=== PATIENT | female | born 1975 | race Asian ===

== ENCOUNTER 2020-03-10 08:45 | Observation (INO) | payer BC ==
[~2020-03-10] VITALS: Ht 157.5 cm; Wt 63.5 kg
[2020-03-10] MEDS ORDERED: SYNTHROID75 MCG ORAL (08:57)
--- NOTE | 2020-03-10 09:11 | Emergency Room Report ---
History of Present Illness General Chief Complaint: Abnormal Labs Source: Patient Present Illness HPI Disclaimer: Please note that this report is being documented using DRAGON technology. This can lead to erroneous entry secondary to incorrect interpretation by the dictating instrument. HPI: 44-year-old female history of chronic anemia presents for evaluation of fatigue concerned of worsening anemia. Patient has chronic anemia and will receive occasional transfusions. She follows with hematology and gets regular infusions of iron at [facility]. Last transfused at [facility] emergency department 3 weeks ago. She states she has been experiencing symptoms of a UTI causing increased bleeding. Prior history of fibroids but status post ablation. Has not been using antibiotics opting for holistic approach to treatment of UTI. Reports fatigue, pale appearance, lightheadedness. She states this is consistent with prior episodes of anemia requiring transfusion. Denies fall or trauma. Denies chest pain, palpitations, shortness of breath, abdominal pain, nausea, vomiting, hematochezia, melena. PMH: Anemia, PSH: Fibroid embolization Allergies: Reviewed Social Hx: Reviewed Allergies: Coded Allergies: No Known Allergies (Unverified , 03/10/20) COVID-19 Screening Contact w/high risk pt: No Experienced COVID-19 symptoms?: No COVID-19 Testing performed TRUST ADMINISTRATOR: No Patient History Now: No Review of Systems All Other Systems: negative except mentioned in HPI Physical Exam Vital Signs Date Time Temp Pulse Resp B/P (MAP) Pulse Ox O2 Delivery O2 Flow Rate FiO2 03/10/20 08:53 98.2 111 18 102/54 (70) 98 Room Air General: Awake and alert, no acute distress, pale appearing HEENT: NC/AT. EOMI. Cardiovascular: Tachycardic. S1 and S2 normal. No murmur appreciated Resp: Normal work of breathing. No cough, wheezing or crackles appreciated Abdomen: Abdomen is soft, nondistended. Nontender Skin: Pale appearing. Intact. No abrasions, laceration or rash over the exposed skin MSK: Normal tone and bulk. Moving all extremities. No obvious deformity. Neuro: Awake and alert. Mentating appropriately. Procedures Critical Care Time Critical Care Time Total critical care time: Approximately 31 minutes Due to a high probability of clinically significant, life threatening deterioration, the patient required the highest level of preparedness to intervene emergently and I personally spent this critical care time directly and personally managing the patient. This critical care time included obtaining a history, examining the patient, pulse oximetry, ordering and reviewing studies, ordering treatments, evaluating response to treatment and updating management plan as needed, frequent reassessment and discussion with other providers as well as arranging for ultimate disposition. This critical to care time was performed to assess and manage the high probability of life-threatening deterioration that could result in multiorgan failure. This critical care time is separate from the separately billable procedures and treating other patients. Medical Decision Making Diagnostic Impression: Primary Impression: Anemia ER Course 44-year-old female history of chronic anemia presents for fatigue. Differential includes is not limited to symptomatic anemia, dehydration, electrolyte abnormality, ACS, among others. EKG is nonischemic. Patient started IV fluids. Hemoglobin returned critically low and will start transfusion. No clear UTI identified. Other labs within normal limits. Patient will require admission. Accepted by Dr. Washington who is panel physician today. Laboratory Tests Test 03/10/20 09:06 White Blood Count 5.5 K/UL (4.8-10.8) Red Blood Count 1.19 M/UL (4.20-5.40) L Hemoglobin 3.6 G/DL (12.0-16.0) *L Hematocrit 12.3 % (37.0-47.0) L Mean Corpuscular Volume 103 FL (80-99) H Mean Corpuscular Hemoglobin 30.2 PG (27.0-31.0) Mean Corpuscular Hemoglobin Concent 29.2 G/DL (32.0-36.0) L Red Cell Distribution Width 23.6 % (11.6-14.8) H Platelet Count 354 K/UL (150-450) Mean Platelet Volume 6.8 FL (6.5-10.1) Neutrophils (%) (Auto) % (45.0-75.0) Lymphocytes (%) (Auto) % (20.0-45.0) Monocytes (%) (Auto) % (1.0-10.0) Eosinophils (%) (Auto) % (0.0-3.0) Basophils (%) (Auto) % (0.0-2.0) Neutrophils % (Manual) Pending Lymphocytes % (Manual) Pending Platelet Estimate Pending Platelet Morphology Pending Prothrombin Time 10.0 SEC (9.30-11.50) Prothrombin Time INR 0.9 (0.9-1.1) Activated Partial Thromboplast Time 21 SEC (23-33) L Urine Color Pale yellow Urine Appearance Clear Urine pH 7 (4.5-8.0) Urine Specific [place] 1.005 (1.005-1.035) Urine Protein 1+ (NEGATIVE) H Urine Glucose (UA) Negative (NEGATIVE) Urine Ketones Negative (NEGATIVE) Urine Blood 5+ (NEGATIVE) H Urine Nitrite Negative (NEGATIVE) Urine Bilirubin Negative (NEGATIVE) Urine Urobilinogen Normal MG/DL (0.0-1.0) Urine Leukocyte Esterase 2+ (NEGATIVE) H Urine RBC 10-15 /HPF (0 - 2) H Urine WBC 2-4 /HPF (0 - 2) Urine Squamous Epithelial Cells Few /LPF (NONE/OCC) Urine Bacteria Occasional /HPF (NONE) Sodium Level 140 MMOL/L (136-145) Potassium Level 4.0 MMOL/L (3.5-5.1) Chloride Level 109 MMOL/L (98-107) H Carbon Dioxide Level 22 MMOL/L (21-32) Anion Gap 9 mmol/L (5-15) Blood Urea Nitrogen 6 mg/dL (7-18) L Creatinine 0.7 MG/DL (0.55-1.30) Estimated Glomerular Filtration Rate > 60 mL/min (>60) Glucose Level 126 MG/DL (74-106) H Calcium Level 7.6 MG/DL (8.5-10.1) L Total Bilirubin 0.2 MG/DL (0.2-1.0) Aspartate Amino Transferase (AST) 19 U/L (15-37) Alanine Aminotransferase (ALT) 16 U/L (12-78) Alkaline Phosphatase 63 U/L (46-116) Troponin I Pending Total Protein 5.2 G/DL (6.4-8.2) L Albumin 2.5 G/DL (3.4-5.0) L Globulin 2.7 g/dL Albumin/Globulin Ratio 0.9 (1.0-2.7) L EKG Diagnostic Results Troponin ordered: Yes When was troponin ordered?: Mar 10, 2020 EKG Time: 09:24 Rate: normal Rhythm: NSR ST Segments: no acute changes Other Impression Sinus rhythm, normal axis, normal intervals, no ST segment changes. Rhythm Strip Diag. Results Rhythm Strip Time: 09:24 EP Interpretation: yes Rate: 100 Rhythm: NSR, no PVC's, no ectopy Last Vital Signs Date Time Temp Pulse Resp B/P (MAP) Pulse Ox O2 Delivery O2 Flow Rate FiO2 03/10/20 08:53 98.2 111 18 102/54 (70) 98 Room Air Disposition: ADMITTED INPATIENT Condition: Serious Hilario Brown MD Mar 10, 2020 09:11
[2020-03-10 09:15] VITALS: BP 102/54
[2020-03-10 09:23] LABS: APPEARANCE,URINE CLEAR; BILIRUBIN, URINE NEGATIVE (NEGATIVE); COLOR,URINE PALE YELLOW; GLUCOSE, URINE (UA) NEGATIVE (NEGATIVE); KETONES,URINE NEGATIVE (NEGATIVE); LEUKOCYTE ESTERASE ,URINE 2+ (NEGATIVE); NITRITE,URINE NEGATIVE (NEGATIVE); PH,URINE 7 (4.5-8.0); PROTEIN,URINE 1+ (NEGATIVE); UROBILINOGEN,URINE NORMAL MG/DL (0.0-1.0)
[2020-03-10 09:25] LABS: HEMATOCRIT 12.3 % (37.0-47.0); HEMOGLOBIN 3.6 G/DL (12.0-16.0); MEAN CORPUSCULAR VOLUME 103 FL (80-99); PLATELET COUNT 354 K/UL (150-450); RED BLOOD COUNT 1.19 M/UL (4.20-5.40); RED CELL DISTRIBUTION WIDTH 23.6 % (11.6-14.8); WHITE BLOOD COUNT 5.5 K/UL (4.8-10.8)
[2020-03-10 09:39] LABS: INR 0.9 (0.9-1.1)
[2020-03-10 09:44] LABS: ANION GAP 9 mmol/L (5-15); BLOOD UREA NITROGEN 6 mg/dL (7-18); CALCIUM 7.6 MG/DL (8.5-10.1); CARBON DIOXIDE 22 MMOL/L (21-32); CHLORIDE 109 MMOL/L (98-107); CREATININE 0.7 MG/DL (0.55-1.30); SODIUM 140 MMOL/L (136-145)
[2020-03-10 09:46] LABS: ALANINE AMINOTRANSFERASE 16 U/L (12-78); ALBUMIN 2.5 G/DL (3.4-5.0); ALBUMIN/GLOBULIN RATIO 0.9 (1.0-2.7); ALKALINE PHOSPHATASE 63 U/L (46-116); ASPARTATE AMINO TRANSFERASE 19 U/L (15-37); BILIRUBIN,TOTAL 0.2 MG/DL (0.2-1.0)
[2020-03-10 10:50] VITALS: BP 97/50
[2020-03-10 16:40] VITALS: BP 122/69
--- NOTE | 2020-03-10 19:38 | History & Physical ---
History and Physical History & Physicial 44-year-old female history of chronic anemia presents for evaluation of fatigue and severe anemia. Patient with prior transfusions. She follows with hematology and gets regular infusions of iron at [facility]. Last transfused at [facility] emergency department 3 weeks ago. +vaginal bleeding. Prior history of fibroids but status post ablation. Has not been using antibiotics opting for holistic approach to treatment of UTI. Reports fatigue, pale appearance, lightheadedness. PMH: Anemia, s/p transfusion PSH: Fibroid embolization Allergies: Reviewed Social Hx: Reviewed Physical WDWN NAD clear breath sounds bilaterally without rhonchi or wheeze [id number] without MRG NABS nontender no HSM no CCE nonfocal Laboratory Tests 03/10/20 09:06: White Blood Count 5.5, Red Blood Count 1.19L, Hemoglobin 3.6*L, Hematocrit 12.3L , Mean Corpuscular Volume 103H, Mean Corpuscular Hemoglobin 30.2, Mean Corpuscular Hemoglobin Concent 29.2L, Red Cell Distribution Width 23.6H, Platelet Count 354, Mean Platelet Volume 6.8, Neutrophils (%) (Auto) , Lymphocytes (%) (Auto) , Monocytes (%) (Auto) , Eosinophils (%) (Auto) , Basophils (%) (Auto) , Differential Total Cells Counted 100, Neutrophils % (Manual) 82H, Lymphocytes % (Manual) 9L, Monocytes % (Manual) 9, Eosinophils % (Manual) 0, Basophils % (Manual) 0, Band Neutrophils 0, Platelet Estimate Adequate, Platelet Morphology Normal, Hypochromasia 2+, Anisocytosis 3+, Macrocytosis 1+, Prothrombin Time 10.0, Prothromb Time International Ratio 0.9, Activated Partial Thromboplast Time 21L, Urine Color Pale yellow, Urine Appearance Clear, Urine pH 7, Urine Specific [employer] [place] 1.005, Urine Protein 1+H, Urine Glucose (UA) Negative, Urine Ketones Negative, Urine Blood 5+H, Urine Nitrite Negative, Urine Bilirubin Negative, Urine Urobilinogen Normal, Urine Leukocyte Esterase 2+H, Urine RBC 10-15H, Urine WBC 2-4, Urine Squamous Epithelial Cells Few, Urine Bacteria Occasional, Sodium Level 140, Potassium Level 4.0, Chloride Level 109H, Carbon Dioxide Level 22, Anion Gap 9, Blood Urea Nitrogen 6L, Creatinine 0.7, Estimat Glomerular Filtration Rate > 60, Glucose Level 126H, Calcium Level 7.6L, Total Bilirubin 0.2, Aspartate Amino Transf (AST/SGOT) 19, Alanine Aminotransferase (ALT/SGPT) 16, Alkaline Phosphatase 63, Troponin I 0.023, Total Protein 5.2L, Albumin 2.5L, Globulin 2.7, Albumin/Globulin Ratio 0.9L IMPRESSION Anemia fibroids fatigue debility PLAN transfuse 4 u prbc heme eval monitor HH diet dc home once stable has regular hematology outpatient impression, plan, and exam edited and reviewed in detail care discussed with Nehemias Fraire MD Mar 10, 2020 19:38
[2020-03-10 20:00] VITALS: BP 118/68
[2020-03-11] VITALS: BP 108/64
[2020-03-11 03:55] VITALS: BP 111/64
[2020-03-11 06:29] LABS: BASOPHILS % (AUTO) 2.3 % (0.0-2.0); EOSINOPHILS % (AUTO) 1.8 % (0.0-3.0); HEMATOCRIT 28.2 % (37.0-47.0); HEMOGLOBIN 9.6 G/DL (12.0-16.0); LYMPHOCYTES % (AUTO) 16.4 % (20.0-45.0); MEAN CORPUSCULAR VOLUME 88 FL (80-99); MONOCYTES % (AUTO) 6.9 % (1.0-10.0); NEUTROPHILS % (AUTO) 72.6 % (45.0-75.0); PLATELET COUNT 218 K/UL (150-450); RED BLOOD COUNT 3.18 M/UL (4.20-5.40); RED CELL DISTRIBUTION WIDTH 18.9 % (11.6-14.8); WHITE BLOOD COUNT 4.9 K/UL (4.8-10.8)
[2020-03-11 06:43] LABS: ANION GAP 9 mmol/L (5-15); CALCIUM 7.3 MG/DL (8.5-10.1); CARBON DIOXIDE 20 MMOL/L (21-32); CHLORIDE 111 MMOL/L (98-107); CREATININE 0.5 MG/DL (0.55-1.30); POTASSIUM 4.2 MMOL/L (3.5-5.1); SODIUM 140 MMOL/L (136-145)
--- NOTE | 2020-03-11 06:51 | Consultation ---
History of Present Illness General Chief Complaint: Abnormal Labs Present Illness Allergies: Coded Allergies: No Known Allergies (Unverified , 03/10/20) Medication History Scheduled Levothyroxine Sodium* (Synthroid*), 50 MCG ORAL DAILY, (Reported) Patient History Healthcare decision maker Resuscitation status Advanced Directive on File Physical Exam Last 24 Hour Vital Signs Date Time Temp Pulse Resp B/P (MAP) Pulse Ox O2 Delivery O2 Flow Rate FiO2 03/11/20 03:55 98.0 80 16 111/64 (80) 98 03/11/20 00:00 98.7 88 16 108/64 (79) 98 03/10/20 21:00 Room Air 03/10/20 20:00 98.2 88 17 118/68 (85) 98 03/10/20 16:40 98.2 91 18 122/69 (86) 99 03/10/20 16:40 Room Air 03/10/20 16:16 98.1 90 18 105/60 99 Room Air 03/10/20 16:15 98.1 90 18 03/10/20 14:45 97.7 92 18 03/10/20 14:30 98.7 90 18 03/10/20 14:00 97.8 90 18 03/10/20 12:28 98.1 99 18 03/10/20 12:13 97.7 106 18 03/10/20 10:50 98.2 102 18 97/50 99 Room Air 03/10/20 09:15 98.2 18 102/54 98 Room Air 03/10/20 08:53 98.2 111 18 102/54 (70) 98 Room Air Intake and Output 03/10/20 03/11/20 19:00 07:00 Intake Total 0 ml Balance 0 ml Intake Oral 0 ml # Bowel Movements 1 Laboratory Tests Test 03/10/20 09:06 03/11/20 05:50 White Blood Count 5.5 K/UL (4.8-10.8) 4.9 K/UL (4.8-10.8) Red Blood Count 1.19 M/UL (4.20-5.40) L 3.18 M/UL (4.20-5.40) L Hemoglobin 3.6 G/DL (12.0-16.0) *L 9.6 G/DL (12.0-16.0) #L Hematocrit 12.3 % (37.0-47.0) L 28.2 % (37.0-47.0) #L Mean Corpuscular Volume 103 FL (80-99) H 88 FL (80-99) # Mean Corpuscular Hemoglobin 30.2 PG (27.0-31.0) 30.2 PG (27.0-31.0) Mean Corpuscular Hemoglobin Concent 29.2 G/DL (32.0-36.0) L 34.1 G/DL (32.0-36.0) Red Cell Distribution Width 23.6 % (11.6-14.8) H 18.9 % (11.6-14.8) H Platelet Count 354 K/UL (150-450) 218 K/UL (150-450) Mean Platelet Volume 6.8 FL (6.5-10.1) 5.8 FL (6.5-10.1) L Neutrophils (%) (Auto) % (45.0-75.0) 72.6 % (45.0-75.0) Lymphocytes (%) (Auto) % (20.0-45.0) 16.4 % (20.0-45.0) L Monocytes (%) (Auto) % (1.0-10.0) 6.9 % (1.0-10.0) Eosinophils (%) (Auto) % (0.0-3.0) 1.8 % (0.0-3.0) Basophils (%) (Auto) % (0.0-2.0) 2.3 % (0.0-2.0) H Differential Total Cells Counted 100 Neutrophils % (Manual) 82 % (45-75) H Lymphocytes % (Manual) 9 % (20-45) L Monocytes % (Manual) 9 % (1-10) Eosinophils % (Manual) 0 % (0-3) Basophils % (Manual) 0 % (0-2) Band Neutrophils 0 % (0-8) Platelet Estimate Adequate Platelet Morphology Normal Hypochromasia 2+ Anisocytosis 3+ Macrocytosis 1+ Prothrombin Time 10.0 SEC (9.30-11.50) Prothromb Time International Ratio 0.9 (0.9-1.1) Activated Partial Thromboplast Time 21 SEC (23-33) L Urine Color Pale yellow Urine Appearance Clear Urine pH 7 (4.5-8.0) Urine Specific [place] 1.005 (1.005-1.035) Urine Protein 1+ (NEGATIVE) H Urine Glucose (UA) Negative (NEGATIVE) Urine Ketones Negative (NEGATIVE) Urine Blood 5+ (NEGATIVE) H Urine Nitrite Negative (NEGATIVE) Urine Bilirubin Negative (NEGATIVE) Urine Urobilinogen Normal MG/DL (0.0-1.0) Urine Leukocyte Esterase 2+ (NEGATIVE) H Urine RBC 10-15 /HPF (0 - 2) H Urine WBC 2-4 /HPF (0 - 2) Urine Squamous Epithelial Cells Few /LPF (NONE/OCC) Urine Bacteria Occasional /HPF (NONE) Sodium Level 140 MMOL/L (136-145) Pending Potassium Level 4.0 MMOL/L (3.5-5.1) Pending Chloride Level 109 MMOL/L (98-107) H Pending Carbon Dioxide Level 22 MMOL/L (21-32) Pending Anion Gap 9 mmol/L (5-15) Blood Urea Nitrogen 6 mg/dL (7-18) L Pending Creatinine 0.7 MG/DL (0.55-1.30) Pending Estimat Glomerular Filtration Rate > 60 mL/min (>60) Pending Glucose Level 126 MG/DL (74-106) H Pending Calcium Level 7.6 MG/DL (8.5-10.1) L Pending Total Bilirubin 0.2 MG/DL (0.2-1.0) Aspartate Amino Transf (AST/SGOT) 19 U/L (15-37) Alanine Aminotransferase (ALT/SGPT) 16 U/L (12-78) Alkaline Phosphatase 63 U/L (46-116) Troponin I 0.023 ng/mL (0.000-0.056) Total Protein 5.2 G/DL (6.4-8.2) L Albumin 2.5 G/DL (3.4-5.0) L Globulin 2.7 g/dL Albumin/Globulin Ratio 0.9 (1.0-2.7) L Height (Feet): 5 Height (Inches): 2.00 Weight (Pounds): 140 Medications Current Medications Medications (Trade) Dose Ordered Sig/Emmanuel Route PRN Reason Start Time Stop Time Status Last Admin Dose Admin Acetaminophen (Tylenol) 650 mg Q4H PRN ORAL Mild Pain (Pain Scale 1-3) 03/10/20 17:15 04/09/20 17:14 Al Hydroxide/Mg Hydroxide (Mylanta) 30 ml EVERY 4 HOURS PRN ORAL Abdominal cramps 03/10/20 17:15 04/09/20 17:14 Levothyroxine Sodium (Synthroid) 50 mcg DAILY@0630 ORAL 03/11/20 06:30 04/10/20 06:29 03/11/20 06:27 Pantoprazole (Protonix) 40 mg DAILY ORAL 03/11/20 09:00 04/10/20 08:59 Sodium Chloride 1,000 ml @ 10 mls/hr Q24H ONCE IV 03/10/20 09:45 03/11/20 09:44 03/10/20 09:46 Assessment/Plan Assessment/Plan: Hematology consultation REQ MD: Thien Washington RFC: Anemia or iron deficiency eval DOS: 03/11/20 HPI: 44-year-old female history of chronic iron deficiency anemia presents for e valuation of fatigue concerned of worsening anemia. Patient has chronic anemia and will receive occasional transfusions. She follows with hematology and gets regular infusions of iron at [facility]. Last transfused at [facility] emergency department 3 weeks ago. She states she has been experiencing symptoms of a UTI causing increased bleeding. Prior history of fibroids but status post ablation. Has not been using antibiotics opting for holistic approach to treatment of UTI. Reports fatigue, pale appearance, lightheadedness. She states this is consistent with prior episodes of anemia requiring transfusion. Denies fall or trauma. Denies chest pain, palpitations, shortness of breath, abdominal pain, nausea, vomiting, hematochezia, melena. Hx of extensive fibroids. PMH: Anemia, PSH: Fibroid embolization Allergies: Reviewed Social Hx: Reviewed Allergies: Coded Allergies: No Known Allergies (Unverified , 03/10/20) COVID-19 Screening Contact w/high risk pt: No Experienced COVID-19 symptoms?: No COVID-19 Testing performed SOLID WASTE ANALYST: No Patient History Now: No Review of Systems All Other Systems: negative except mentioned in HPI Physical Exam General: Awake and alert, no acute distress HEENT: NC/AT. EOMI. Cardiovascular: Tachycardic. S1 and S2 normal. No murmur appreciated Resp: Normal work of breathing. No cough, wheezing or crackles appreciated Abdomen: Abdomen is soft, nondistended. Nontender Skin: Pale appearing. Intact. No abrasions, laceration or rash over the exposed skin MSK: Normal tone and bulk. Moving all extremities. No obvious deformity. Neuro: Awake and alert. Mentating appropriately. Labs: reviewed Imaging: noted Assessmet and Recs # Anemia of iron deficiency -> is being seen by [place] hematology Dr. Rodriguez -> does not require a bone marrow biopsy given more likely cause of fibroids --> is s/p 4 units prbc transfusion --> consider iv iron, though today she wants a break from treatment # Hypocalcemia --> calcium to order as needed, corrects with alb # Decreased albumin --> again mild # Fibroid hx Appreciate consultation and dw Francisco Aguilera MD Mar 11, 2020 06:51
[2020-03-11 07:59] VITALS: BP 110/60
[2020-03-11 08:20] LABS: BLOOD UREA NITROGEN 5 mg/dL (7-18)
--- NOTE | 2020-03-11 12:26 | General Progress Note ---
Subjective Allergies: Coded Allergies: No Known Allergies (Unverified , 03/10/20) Subjective s/p transfusion Objective Last 24 Hour Vital Signs Date Time Temp Pulse Resp B/P (MAP) Pulse Ox O2 Delivery O2 Flow Rate FiO2 03/11/20 09:00 Room Air 03/11/20 07:59 98.4 91 17 110/60 (77) 99 03/11/20 03:55 98.0 80 16 111/64 (80) 98 03/11/20 00:00 98.7 88 16 108/64 (79) 98 03/10/20 21:00 Room Air 03/10/20 20:00 98.2 88 17 118/68 (85) 98 03/10/20 16:40 98.2 91 18 122/69 (86) 99 03/10/20 16:40 Room Air 03/10/20 16:16 98.1 90 18 105/60 99 Room Air 03/10/20 16:15 98.1 90 18 03/10/20 14:45 97.7 92 18 03/10/20 14:30 98.7 90 18 03/10/20 14:00 97.8 90 18 03/10/20 12:28 98.1 99 18 Intake and Output 03/10/20 03/11/20 19:00 07:00 Intake Total 0 ml Balance 0 ml Intake Oral 0 ml # Bowel Movements 1 Laboratory Tests 03/11/20 05:50: White Blood Count 4.9, Red Blood Count 3.18L, Hemoglobin 9.6#L, Hematocrit 28.2#L, Mean Corpuscular Volume 88#, Mean Corpuscular Hemoglobin 30.2, Mean Corpuscular Hemoglobin Concent 34.1, Red Cell Distribution Width 18.9H, Platelet Count 218, Mean Platelet Volume 5.8L, Neutrophils (%) (Auto) 72.6, Lymphocytes (%) (Auto) 16.4L, Monocytes (%) (Auto) 6.9, Eosinophils (%) (Auto) 1.8, Basophils (%) (Auto) 2.3H, Sodium Level 140, Potassium Level 4.2, Chloride Level 111H, Carbon Dioxide Level 20L, Anion Gap 9, Blood Urea Nitrogen 5L, Creatinine 0.5L, Estimat Glomerular Filtration Rate > 60, Glucose Level 103, Calcium Level 7.3L Height (Feet): 5 Height (Inches): 2.00 Weight (Pounds): 140 Objective WDWN NAD clear breath sounds bilaterally without rhonchi or wheeze [id number] without MRG NABS nontender no HSM no CCE nonfocal Assessment/Plan Assessment/Plan: IMPRESSION Anemia fibroids fatigue debility PLAN transfused 4 u prbc heme eval noted monitor HH post dc stable for dc with outpatient follow up impression, plan, and exam edited and reviewed in detail care discussed with Nehemias Fraire MD Mar 11, 2020 12:26
--- NOTE | 2020-03-12 17:00 | Discharge Summary ---
Discharge Summary Discharge Summary _ Date of admission: 03/10/2020 Date of discharge: 03/11/[address] Washington Reason for hospitalization: A 44-year-old female with past medical history of chronic anemia, uterine fibroids status post ablation presented to the ED for evaluation of fatigue. She reported she has chronic anemia and receives occasional transfusions at [facility]. Patient stated that the last transfusion at [facility] emergency department was 3 weeks ago. She also stated that she has been experiencing UTI symptoms associated with increased bleeding. She reported fatigue, pale appearance, lightheadedness which felt similar to her prior episodes of anemia requiring transfusion. Consultants: Hematology/oncology Francisco Brown Significant finding: Vital signs were stable; pulse oximetry was stable on room air Laboratory work-up revealed markedly low hemoglobin of 3.6, hematocrit 12.3 Urinalysis showed 1+ protein, 5+ blood, 2+ leukocyte esterase Rapid COVID-19 was negative Coagulation panel revealed aPTT of 21 Hospital course/treatment rendered Patient was admitted Patient received IV fluids Patient received 4 units of PRBC resulting in hemoglobin of 9.6 Patient received a GI prophylaxis Condition of patient on discharge Patient was clinically stable for discharge to home Discharge instruction Follow-up with [place] hematology Dr. Rodriguez within 1 week Final diagnoses Anemia of iron deficiency Hypocalcemia Decreased albumin History of uterine fibroid I have been assigned to dictate discharge summary for this account. I was not involved in the patient's management Herb Lambert Mar 12, 2020 17:00
== END 2020-03-11 12:00 | disposition home or self-care (01) ==
LOC: EMR 09:10 → INTOOBSV 09:58 → 3E 09:58 → EDBEDREQ 16:07
PROC: 30233N1 Transfusion of Nonautologous Red Blood Cells into Peripheral Vein, Percutaneous Approach (ICD-10-PCS; principal; 2020-03-10)
DX: D50.9 Iron deficiency anemia, unspecified (principal); E83.51 Hypocalcemia; D25.9 Leiomyoma of uterus, unspecified; R77.0 Abnormality of albumin; R53.83 Other fatigue
CPT/HCPCS: 36415; 80048; 80053; 81003; 84484; 85007; 85025; 85610; 85730; 86850; 86870; 86900; 86901; 86904; 86920; 93005; 99291; P9016

== ENCOUNTER 2020-03-13 18:30 | Emergency (ER) | payer BC ==
[~2020-03-13] VITALS: Ht 157.5 cm; Wt 63.5 kg
[~2020-03-13 18:30] MED LIST: SYNTHROID75 MCG ORAL
--- NOTE | 2020-03-13 18:59 | Emergency Room Report ---
History of Present Illness General Chief Complaint: Generalized Weakness Source: Patient Present Illness HPI Disclaimer: Please note that this report is being documented using [employer] technology. This can lead to erroneous entry secondary to incorrect interpretation by the dictating instrument. HPI: 44-year-old female history of anemia, menorrhagia, presents for urinary frequency and urgency. She states symptoms present for the last couple of days. Patient was recently admitted to the hospital for anemia and did require blood transfusion. She reports lower abdominal pressure. No fevers nausea or vomiting. She is tolerating oral intake. Allergies: Coded Allergies: No Known Allergies (Unverified , 03/10/20) COVID-19 Screening Contact w/high risk pt: No Experienced COVID-19 symptoms?: No COVID-19 Testing performed BONE CHAR PULLER: No Patient History Now: No Reviewed Nursing Documentation: PMH: Agreed; PSxH: Agreed Nursing Documentation-PMH Past Medical History: No History, Except For Hx Cardiac Problems: No - anemia Hx Cancer: No Hx Gastrointestinal Problems: No Hx Neurological Problems: No Review of Systems All Other Systems: negative except mentioned in HPI Physical Exam Vital Signs Date Time Temp Pulse Resp B/P (MAP) Pulse Ox O2 Delivery O2 Flow Rate FiO2 03/13/20 18:34 98.4 87 16 121/69 (86) 98 Room Air Sp02 EP Interpretation: reviewed, normal General Appearance: well appearing, no apparent distress Head: normocephalic, atraumatic Eyes: bilateral eye PERRL, bilateral eye EOMI ENT: hearing grossly normal, moist mucus membranes Neck: full range of motion, supple Respiratory: lungs clear, normal breath sounds, no rhonchi, no respiratory distress, no retraction, no wheezing Cardiovascular #1: normal peripheral pulses, regular rate, rhythm, no murmur Gastrointestinal: non tender, soft, non-distended, no guarding Neurologic: alert, oriented x3, no focal defects Skin: normal color, warm/dry Medical Decision Making Diagnostic Impression: Primary Impression: UTI (urinary tract infection) ER Course MDM: Differential included but not limited to anemia, UTI, dehydration to name a few Clinical course-IV inserted, IV fluids given. Laboratory studies were sent and showed hemoglobin of 8.8. Urinalysis with 2+ leukocyte Estrace. Patient symptoms and laboratory studies consistent with urinary tract infection. IV Rocephin given once in the ER. Will be discharged home on p.o. antibiotics. Patient's vital signs were stable. She had no active vomiting. Will follow up with PMD. Return precautions were given. Labs - Laboratory Tests Test 03/13/20 19:07 White Blood Count 10.6 K/UL (4.8-10.8) Red Blood Count 2.95 M/UL (4.20-5.40) L Hemoglobin 8.8 G/DL (12.0-16.0) L Hematocrit 26.5 % (37.0-47.0) L Mean Corpuscular Volume 90 FL (80-99) Mean Corpuscular Hemoglobin 29.8 PG (27.0-31.0) Mean Corpuscular Hemoglobin Concent 33.2 G/DL (32.0-36.0) Red Cell Distribution Width 18.8 % (11.6-14.8) H Platelet Count 294 K/UL (150-450) Mean Platelet Volume 5.8 FL (6.5-10.1) L Neutrophils (%) (Auto) 88.9 % (45.0-75.0) H Lymphocytes (%) (Auto) 5.1 % (20.0-45.0) L Monocytes (%) (Auto) 4.9 % (1.0-10.0) Eosinophils (%) (Auto) 0.1 % (0.0-3.0) Basophils (%) (Auto) 1.0 % (0.0-2.0) Urine Color Yellow Urine Appearance Clear Urine pH 6 (4.5-8.0) Urine Specific [place] 1.005 (1.005-1.035) Urine Protein 2+ (NEGATIVE) H Urine Glucose (UA) Negative (NEGATIVE) Urine Ketones Negative (NEGATIVE) Urine Blood 5+ (NEGATIVE) H Urine Nitrite Negative (NEGATIVE) Urine Bilirubin Negative (NEGATIVE) Urine Urobilinogen Normal MG/DL (0.0-1.0) Urine Leukocyte Esterase 2+ (NEGATIVE) H Urine RBC 2-4 /HPF (0 - 2) H Urine WBC 5-10 /HPF (0 - 2) H Urine Squamous Epithelial Cells None /LPF (NONE/OCC) Urine Bacteria Occasional /HPF (NONE) Urine HCG, Qualitative Negative (NEGATIVE) Sodium Level 130 MMOL/L (136-145) L Potassium Level 3.6 MMOL/L (3.5-5.1) Chloride Level 100 MMOL/L (98-107) Carbon Dioxide Level 21 MMOL/L (21-32) Anion Gap 9 mmol/L (5-15) Blood Urea Nitrogen 5 mg/dL (7-18) L Creatinine 0.6 MG/DL (0.55-1.30) Estimated Glomerular Filtration Rate > 60 mL/min (>60) Glucose Level 115 MG/DL (74-106) H Calcium Level 7.5 MG/DL (8.5-10.1) L Total Bilirubin 0.3 MG/DL (0.2-1.0) Aspartate Amino Transferase (AST) 18 U/L (15-37) Alanine Aminotransferase (ALT) 19 U/L (12-78) Alkaline Phosphatase 69 U/L (46-116) Total Protein 5.2 G/DL (6.4-8.2) L Albumin 2.6 G/DL (3.4-5.0) L Globulin 2.6 g/dL Albumin/Globulin Ratio 1.0 (1.0-2.7) On reevaluation: Patient in no acute distress Plan-discharge home on p.o. antibiotic Last Vital Signs Date Time Temp Pulse Resp B/P (MAP) Pulse Ox O2 Delivery O2 Flow Rate FiO2 03/13/20 18:34 98.4 87 16 121/69 (86) 98 Room Air Status: unchanged Disposition: HOME, SELF-CARE Condition: Improved Scripts Cephalexin* (KEFLEX*) 500 Mg Tablet 500 MG ORAL EVERY 8 HOURS, #21 CAP Prov: Koko Price M.D. 03/13/20 Koko Price M.D. Mar 13, 2020 18:59
[2020-03-13 19:18] VITALS: BP 129/67
[2020-03-13 19:27] LABS: HEMATOCRIT 26.5 % (37.0-47.0); HEMOGLOBIN 8.8 G/DL (12.0-16.0); MEAN CORPUSCULAR VOLUME 90 FL (80-99); PLATELET COUNT 294 K/UL (150-450); RED BLOOD COUNT 2.95 M/UL (4.20-5.40); RED CELL DISTRIBUTION WIDTH 18.8 % (11.6-14.8); WHITE BLOOD COUNT 10.6 K/UL (4.8-10.8)
[2020-03-13 19:31] LABS: APPEARANCE,URINE CLEAR; BILIRUBIN, URINE NEGATIVE (NEGATIVE); GLUCOSE, URINE (UA) NEGATIVE (NEGATIVE); KETONES,URINE NEGATIVE (NEGATIVE); LEUKOCYTE ESTERASE ,URINE 2+ (NEGATIVE); NEUTROPHILS % (AUTO) 88.9 % (45.0-75.0); NITRITE,URINE NEGATIVE (NEGATIVE); PH,URINE 6 (4.5-8.0); PROTEIN,URINE 2+ (NEGATIVE); UROBILINOGEN,URINE NORMAL MG/DL (0.0-1.0)
[2020-03-13 19:32] LABS: EOSINOPHILS % (AUTO) 0.1 % (0.0-3.0); LYMPHOCYTES % (AUTO) 5.1 % (20.0-45.0); MONOCYTES % (AUTO) 4.9 % (1.0-10.0)
[2020-03-13 19:34] LABS: COLOR,URINE YELLOW
[2020-03-13 19:37] LABS: ANION GAP 9 mmol/L (5-15); BLOOD UREA NITROGEN 5 mg/dL (7-18); CALCIUM 7.5 MG/DL (8.5-10.1); CARBON DIOXIDE 21 MMOL/L (21-32); CHLORIDE 100 MMOL/L (98-107); CREATININE 0.6 MG/DL (0.55-1.30); POTASSIUM 3.6 MMOL/L (3.5-5.1); SODIUM 130 MMOL/L (136-145)
[2020-03-13 19:42] LABS: ALANINE AMINOTRANSFERASE 19 U/L (12-78); ALBUMIN 2.6 G/DL (3.4-5.0); ALKALINE PHOSPHATASE 69 U/L (46-116); ASPARTATE AMINO TRANSFERASE 18 U/L (15-37); BILIRUBIN,TOTAL 0.3 MG/DL (0.2-1.0)
[2020-03-13] MEDS ORDERED: CEPHALEXIN500 M1 ORAL (19:58)
[2020-03-13] MEDS ORDERED: cefTRIAXone 1 GM in NS 55 ML IVPB ONE (20:00)
[2020-03-13 20:55] VITALS: BP 119/72
== END 2020-03-13 20:55 | disposition home or self-care (01) ==
LOC: EMR 19:01
DX: N39.0 Urinary tract infection, site not specified (principal)
CPT/HCPCS: 80053; 81003; 81025; 85025; 96361; 96365; 99284; J0696; J7030; 36415; 86850; 86900; 86901